=== PATIENT | female | born 1995 ===

== ENCOUNTER 2019-09-06 02:24 | Emergency (ER) | payer OTHER ==
[~2019-09-06] VITALS: Ht 165.1 cm; Wt 128.2 kg
[2019-09-06] MEDS ORDERED: LIDODERM 5% PATCH TD ONE ×2 (03:00→03:13)
[2019-09-06] MEDS ORDERED: METHOCARBAMOL 750 MG TABLET PO ONE (03:00)
[2019-09-06] MEDS ORDERED: KETOROLAC 30 MG/1 ML IM ONE (03:00)
[2019-09-06] MEDS ORDERED: METHOCARBAMOL 750 MG TABLET ONE (03:12)
[2019-09-06] MEDS ORDERED: KETOROLAC 60 MG/2 ML ONE (03:13)
[2019-09-06 04:36] VITALS: BP 175/102
--- NOTE | 2019-09-06 04:48 | NUR ---
PT REPORTS LESS PAIN, BP STILL CONTINUES TO BE ELEVATED. ERP NOTIFIED. PT DENIES ANY NEEDS OR CONCERNS AT THIS TIME. CALL LIGHT IN REACH.
== END 2019-09-06 05:03 | disposition home or self-care (01) ==
LOC: ED 03:33
DX: S39.012A Strain of muscle, fascia and tendon of lower back, initial encounter (principal); M54.41 Lumbago with sciatica, right side; I10 Essential (primary) hypertension; X58.XXXA Exposure to other specified factors, initial encounter; Y93.89 Activity, other specified; Y92.89 Other specified places as the place of occurrence of the external cause; Y99.8 Other external cause status
CPT/HCPCS: 72110; 96372; 99284; J1885; J7512